=== PATIENT | female | born 1985 | race Caucasian/White ===

== ENCOUNTER 2018-12-27 06:52 | Inpatient (IN) | payer OTHER ==
[2018-12-27] VITALS (42 sets, daily range): BP systolic 76–140; BP diastolic 46–81; PULSE 80–104; RESP 10–29; Ht 170.2 cm; Wt 65.9 kg
[~2018-12-27] VITALS: Ht 170.2 cm; Wt 65.9 kg
[~2018-12-27 06:52] MED LIST: CEFAZOLIN 1 GM/50 ML (PMX) 50 ML IVPB SCH; SOD CHLORIDE 0.9% 1,000 ML IV ONE
--- NOTE | 2018-12-27 07:42 | PREAC ---
Date/Time of Note Date/Time of Note DATE: 12/27/18 TIME: 07:41 Anesthesia Eval and Record Evaluation Time Pre-Procedure Interview DATE: 12/27/18 TIME: 07:41 Age 33 Sex female NPO: 8 hrs Preoperative diagnosis left breast cancer Planned procedure left modified radical mastectomy Past Medical History Past Medical History: Includes Pulm: Smoking Hx (daily smoker ) Recreational drugs: Heroin (IV Heroin, per patient report last use was last night, Dr Madrid is aware. Dr Madrid and patient want to proceed with understanding of increased risks ), Other (U-tox positive for opiates and cocaine. ) Surgery & Anesthesia Issues No known issue (left ACL ) Meds Anticoagulation: No Beta Blanca within 24 hr: No Reason Beta Blanca not given: Pt. not on B-Blanca No Active Prescriptions or Reported Meds Current Medications Cefazolin Sodium 50 ml @ 100 mls/hr PRE-OP IVPB ; Start 12/27/18 at 06:00; Stop 12/27/18 at 15:00 Sodium Chloride 1,000 ml @ 75 mls/hr [id number] ONCE IV ; Start 12/27/18 at 06:00; Stop 12/27/18 at 19:19 Meds reviewed: Yes (none) Allergies Coded Allergies: No Known Allergy (Unverified , 12/27/18) Allergies Reviewed: Yes Labs/Studies Labs Reviewed: Reviewed by anesthesiologist test: Negative Studies: ECG (NSR) Pre-procedure Exam Airway: Adequate mouth opening, Adequate thyromental dist Mallampati: Mallampati II Teeth: Normal Lung: Normal Heart: Normal ASA Physical Status ASA physical status: 2 Emergency: None Planned Anesthetic General/MAC: ETT Planned Pain Management Parenteral pain med, Local by surgeon Pre-operative Attestations Prior to commencing anesthesia and surgery, the patient was re-evaluated, there was verification of: *The patient's identity *The results of appropriate recent lab work and preoperative vital signs *The above evaluation not changing prior to induction *Anesthetic plan, risk benefits, alternative and complications discussed with patient/family; questions answered; patient/family understands, accepts and wishes to proceed. OSCAR GREEN Dec 27, 2018 07:42
[2018-12-27] MEDS ORDERED: MIDAZOLAM 1 MG/ML 2 ML INJ ONE ×2 (07:47→09:55)
[2018-12-27] MEDS ORDERED: LIDOCAINE 2% (SDV) 5 ML INJ ONE (07:47)
[2018-12-27] MEDS ORDERED: ROCURONIUM 50 MG INJ ONE (07:47)
[2018-12-27] MEDS ORDERED: HYDROmorphONE 2 MG/ML SYG ONE (07:47)
[2018-12-27] MEDS ORDERED: PROPOFOL 20 ML ONE (07:47)
[2018-12-27] MEDS ORDERED: CEFAZOLIN 1 GM INJ ONE (07:48)
[2018-12-27] MEDS ORDERED: ONDANSETRON 4 MG INJ ONE (08:35)
[2018-12-27] MEDS ORDERED: DEXAMETHASONE 4 MG/ML 5 ML INJ ONE (08:35)
[2018-12-27] MEDS ORDERED: ONDANSETRON 4 MG INJ IV PRN ×3 (09:00→14:30)
[2018-12-27] MEDS ORDERED: OXYCODONE/ACETAMINOPHEN (5/325) TAB PO PRN ×2 (09:00)
[2018-12-27] MEDS ORDERED: MEPERIDINE 25 MG INJ IV PRN (09:00)
[2018-12-27] MEDS ORDERED: MIDAZOLAM 1 MG/ML 2 ML INJ IV PRN ×2 (09:00→16:30)
[2018-12-27] MEDS ORDERED: morphine (1 MG/ML) 10ML SYRINGE IV PRN ×3 (09:00)
[2018-12-27] MEDS ORDERED: ALBUTEROL 0.083% (NEB) 2.5 MG/3 ML AMP HHN PRN (09:00)
[2018-12-27] MEDS ORDERED: ESMOLOL 10 ML ONE (09:10)
[2018-12-27] MEDS ORDERED: SUGAMMADEX SODIUM 200 MG/2 ML VIAL IV ONE (09:11)
--- NOTE | 2018-12-27 09:38 | SIPON ---
Date/Time of Note Date/Time of Note DATE: 12/27/18 TIME: 09:37 Operative Report Preoperative Diagnosis Locally advanced left breast cancer Postoperative Diagnosis Same Operation/Procedure Performed Left modified radical mastectomy Surgeon see signature line assistant kitchen manager Dr Dominguez Second assist: MAVIS ABARCA MD Anesthesia: general Estimated blood loss: 10 - 50 ml's Transfusion Required none Specimen Left breast and axillary contents Grafts/Implants none Complications none LUISITO EBCKER MD Dec 27, 2018 09:38
[2018-12-27] MEDS ORDERED: DIPHENHYDRAMINE 50 MG INJ IV PRN (10:00)
[2018-12-27] MEDS ORDERED: morphine 2 MG INJ IV PRN ×3 (10:00→10:18)
[2018-12-27] MEDS ORDERED: ACETAMINOPHEN 1000MG/100ML IV 100 ML IVPB PRN (10:00)
[2018-12-27] MEDS: morphine 2 MG INJ IV PRN ×3 (10:22→11:27)
--- NOTE | 2018-12-27 10:32 | OPR ---
DATE OF OPERATION: 12/27/2018 PREOPERATIVE DIAGNOSIS: Locally advanced left breast cancer. POSTOPERATIVE DIAGNOSIS: Locally advanced left breast cancer. OPERATION PERFORMED: Left modified radical mastectomy. ANESTHESIA: General. ANESTHESIOLOGIST: Nurse artificial stone setter, Matti Adams. SURGEON: Andrew Madrid MD CARBON BRUSH MAKER: Dr. Iron Bello and Dr. Chanelle Altamirano INDICATIONS FOR PROCEDURE: The patient is a very unfortunate 33-year-old female who suffers from radha cotic addiction. She noticed a mass in her left breast, but did not immediately seek medical evaluat ion. The mass became quite large and began to involve the skin. She was then seen by Dr. Madrid and consideration was given to possible benefit of neoadjuvant chemotherapy; however, she was HER-2 negat alexa and ER positive and there was also a question as to whether or not she can be compliant due to he r drug addiction. Therefore, decision was made to proceed directly with left modified radical mastec kiesha. DESCRIPTION OF PROCEDURE: The patient was brought to the operating theater, placed under general ane sthesia. The left breast and axillary region was prepped and draped in usual sterile fashion. A wid e elliptical incision was made around the nipple areolar complex including a significant amount of sk in superior to the nipple that appeared to be involved with malignant process. The incision was goyal ied out with 15 blade scalpel. Subcutaneous tissue was dissected with cautery. The skin edges were then elevated with Allis Todd clamps and skin flaps were created using cautery, first superiorly to the clavicle, then medially to sternal border, inferiorly to the inframammary fold and laterally unti l the latissimus dorsi was identified throughout its course. Mastectomy then took place from medial to lateral using cautery. At the border of the pectoralis major muscle, the pectoralis minor muscle was identified. It was incised. The clavipectoral fascia was then incised allowing access into the axilla with blunt dissection along the chest wall. The long thoracic nerve was identified and kept o ut of harm's way. More superiorly, the axillary vein was identified, dissected from medial to latera l. Significant lymphovascular structures were controlled with the LigaSure device and Hemoclips. Th e thoracodorsal neurovascular bundle was identified and kept out of harm's way. Level 1 and level 2 conchita tissues was then meticulously harvested using the LigaSure device. Some of the nodes appeared to be positive for metastatic disease. Final connective tissue attachments to the latissimus dorsi m uscle were then transected with cautery. Specimen was oriented and sent for permanent pathologic santiago lysis. The wound was irrigated. Minimal residual bleeding was controlled with cautery. Two #10 fla t Manuel-Hill drains were then brought through the left mid axillary line, one was cut to size and laid within the axilla, the other was cut to size and laid over the pectoralis major muscle. Both dr charley were secured in place with 2-0 nylon sutures in a standard fashion. The skin was then reapproxi mated with deep dermal layer of 4-0 Vicryl sutures in interrupted fashion, followed by final skin parrish roximation with 5-0 PDS sutures in subcuticular fashion. Benzoin and Steri-Strips were then applied. The patient tolerated procedure well. The estimated blood loss was approximately 40 mL. There wer e no complications. The patient was transported in stable condition to recovery room where a circumf erential compression dressing was applied. Dictated By: ANDREW MADRID MD TL/NTS Conf#: [id number] DID#: [id number] CC: CHANELLE ALTAMIRANO MD; IRON BELLO MD;*EndCC*
--- NOTE | 2018-12-27 10:53 | PAC ---
Date/Time of Note Date/Time of Note DATE: 12/27/18 TIME: 10:52 Post-Anesthesia Notes Post-Anesthesia Note Last documented vital signs Vital Signs Date Temp Pulse Resp B/P (MAP) Pulse Ox O2 O2 Flow FiO2 Time Delivery Rate 12/27/18 97.7 10:15 12/27/18 Simple 8.0 10:03 Mask 12/27/18 91 18 106/58 99 07:54 (74) Activity: WNL Respiratory function: WNL Cardiovascular function: WNL Mental status: Baseline Pain reasonably controlled: Yes Hydration appropriate: Yes Nausea/Vomiting absent: Yes OSCAR GREEN Dec 27, 2018 10:53
[2018-12-27] MEDS ORDERED: morphine 1 MG/ML 30 ML (PCA) IV SCH ×3 (12:00→16:30)
[2018-12-27] MEDS ORDERED: NALOXONE (0.4 MG/ML) INJ IV PRN (12:30)
[2018-12-27] MEDS ORDERED: LORAZEPAM 2 MG INJ IV PRN ×2 (12:30→18:30)
[2018-12-27] MEDS: D5W-0.45 NACL + KCL 20 MEQ 1,000 ML IV SCH ×3 (13:39→23:18)
[2018-12-27] MEDS ORDERED: NACL 0.9% 3 ML SYG IV SCH (14:30)
[2018-12-27] MEDS ORDERED: ENALAPRILAT 1.25 MG INJ IV PRN (14:30)
[2018-12-27] MEDS ORDERED: hydrALAzine 20 MG INJ IV PRN (14:30)
--- NOTE | 2018-12-27 14:34 | HP ---
Date/Time of Note Date/Time of Note DATE: 12/27/18 TIME: 14:34 Assessment/Plan VTE Prophylaxis Pharmacological prophylaxis: other Lines/Catheters IV C[facility] Type [facility] Peripheral IV Assessment/Plan Hospital Course Patient is a female with a past medical history significant for daily heroin use who presents to [facility] for elective left modified radical mastectomy. Patient is now out of surgery in the [facility] floor and intense pain. Patient uses approximately $600-$700 worth of heroin daily and has been for the past 10 years. Patient currently denies any nausea, vomiting, headache, chest pain other than surgical site pain, shortness of breath. Objective Physical exam General: Patient is laying in bed and answers questions appropriately Mentation: Patient is alert and oriented 4, Head: Normocephalic atraumatic Eyes: EOMI, pupils reactive to light Neck: Supple, nontender, midline Respiratory: Clear to auscultation bilaterally Cardiovascular: Tachycardic rate, no obvious murmurs Gastrointestinal: non-tender to palpation, bowel sounds heard. Neurological: Moves all extremities spontaneously Skin: Surgical site bandaged Assessment and plan Breast cancer -Status post elective left modified radical mastectomy -Surgery recommendations appreciated Chronic pain -Patient's $700 a day heroin addict -Pain management on board, currently on morphine drip, will need to adjust as patient's uses excessive amounts of heroin which will need likely a Dilaudid drip plus other management -We will need to be very careful as not to depress patient's respiratory drive -firestop/containment worker and psychiatrist also on board History of schizophrenia -Psychiatry on board Disposition -Follow-up with general surgery recommendations, will need to control patient's pain as much as we can without decreasing respiratory drive. Pain management regulations appreciated Result Diagram: 12/27/18 0739 12/27/18 0739 Results 24hrs Laboratory Tests Test 12/27/18 07:10 12/27/18 07:39 Urine Opiates Screen Positive Urine Barbiturates Negative Urine Amphetamines Screen POSITIVE Urine Benzodiazepines Screen Negative Urine Cocaine Screen Positive Urine Cannabinoids Negative White Blood Count 9.3 Red Blood Count 4.36 Hemoglobin 11.6 L Hematocrit 35.7 L Mean Corpuscular Volume 81.9 L Mean Corpuscular Hemoglobin 26.6 L Mean Corpuscular Hemoglobin Concent 32.5 Red Cell Distribution Width 14.6 H Platelet Count 286 Mean Platelet Volume 10.1 Immature Granulocytes % 0.300 Neutrophils % 70.1 Lymphocytes % 20.9 Monocytes % 4.3 Eosinophils % 4.1 Basophils % 0.3 Nucleated Red Blood Cells % 0.0 Immature Granulocytes # 0.030 Neutrophils # 6.6 Lymphocytes # 2.0 Monocytes # 0.4 Eosinophils # 0.4 Basophils # 0.0 Nucleated Red Blood Cells # 0.0 Prothrombin Time 12.3 Prothrombin Time Ratio 1.0 INR International Normalized Ratio 0.90 Activated Partial Thromboplast Time 30.3 Sodium Level 139 Potassium Level 4.0 Chloride Level 103 Carbon Dioxide Level 30 Anion Gap 6 Blood Urea Nitrogen 18 Creatinine 0.66 Est Glomerular Filtrat Rate mL/min > 60 Glucose Level 88 Calcium Level 9.0 HPI/ROS Admit Date/Time Admit Date/Time Dec 27, 2018 at 06:52 PMH/Family/Social Past Medical History Medications Current Medications Cefazolin Sodium 50 ml @ 100 mls/hr PRE-OP IVPB ; Start 12/27/18 at 06:00; Stop 12/27/18 at 15:00 Diphenhydramine HCl (Benadryl) 25 mg ONCE PRN IV itching; Start 12/27/18 at 10:00; Stop 12/29/18 at 09:59 Ondansetron HCl (Zofran Inj) 4 mg Q6H PRN IV NAUSEA AND/OR VOMITING; Start 12/27/18 at 10:00 Potassium Chloride/Dextrose/ Sod Cl 1,000 ml @ 125 mls/hr Q8H IV Last administered on 12/27/18at 13:39; Admin Dose 125 MLS/HR; Start 12/27/18 at 09:45 Acetaminophen 100 ml @ 400 mls/hr Q6H PRN IVPB PAIN Last administered on 12/27/18at 14:00; Admin Dose 400 MLS/HR; Start 12/27/18 at 10:00; Stop 12/28/18 at 09:59 Naloxone HCl (Narcan) 0.4 mg PRN PRN IV SEDATION; Start 12/27/18 at 12:30 Lorazepam (Ativan) 0.5 mg Q6H PRN IV AGITATION; Start 12/27/18 at 12:30 Morphine Sulfate (morphine) 30 mg Q4PCA IV Last administered on 12/27/18at 12:36; Admin Dose 30 MG; Start 12/27/18 at 12:30 IV Flush (NS 3 ml) 3 ml PER PROTOCOL IV ; Start 12/27/18 at 14:30 Acetaminophen (Tylenol Tab) 650 mg Q6H PRN PO .PAIN 1-3 OR TEMP; Start 12/28/18 at 10:00 Coded Allergies: No Known Allergy (Unverified , 12/27/18) Social History Smoking Status: Current every day smoker Exam/Review of Systems Vital Signs Vitals Vital Signs Date Temp Pulse Resp B/P (MAP) Pulse Ox O2 O2 Flow FiO2 Time Delivery Rate 12/27/18 97.6 100 18 121/57 99 13:45 (78) 12/27/18 Room Air 13:19 12/27/18 2.0 10:[address] Dec 27, 2018 14:34
[2018-12-27] MEDS ORDERED: FENTAnyl (DRIP) 1000 mcg/100mL 100 ML IV SCH (16:30)
--- NOTE | 2018-12-27 16:46 | CONS ---
Assessment/Plan Assessment/Plan Assessment/Plan (Daily) Patient status post elective left modified radical mastectomy Heroin addiction, heavy use complete database although it is known that patient injected with heroin the day prior to hospitalization and in all probability the day of hospitalization. This conference is made secondary to patient having drugs on her person when admitted to medical surgical floor postoperatively Amphetamine use Cocaine use In this patient's condition we will move her to the intensive care unit for close monitoring. We will start her off and fentanyl drip to titrate based upon withdrawal symptoms methadone low-dose for now anticipate requiring very high doses based upon her prehospital use of heroin. Versed as needed severe withdrawal symptoms from amphetamines and/or cocaine as needed. High risk postoperative complications including seizures, agitation, aggressive behavior Hypotension Being resuscitated with fluids at this time Will not reverse high likelihood that patient will seize. Consultation Date/Type/Reason Admit Date/Time Dec 27, 2018 at 06:52 Date/Time of Note DATE: 12/27/18 TIME: 16:45 Hx of Present Illness Patient is altered sedated at this time all information taken from her medical records. She is a 33-year-old female who has history of breast cancer status post left modified radical mastectomy today. I am asked see patient this patient has a history of heroin cocaine and methamphetamine abuse. According to family members and information taken from medical record she has a $700 a day heroin addiction she presented to hospital this morning with a drug screen positive for heroin methamphetamine and cocaine. 3 drugs were found on her person when she arrived to the hospital in her room postoperatively those have been taken away by family members. 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 There is a major concern that patient will withdraw from her heroin addiction as she has been difficult and pulling out her IV lines since she has been on medical surgical floor. Patient's blood pressure systolic has been progressively falling from systolic 142 systolic of 100 sats remain within normal limits. Past Medical History Medical History: other (History of breast cancer) Home Meds No Active Prescriptions or Reported Meds Medications Current Medications Diphenhydramine HCl (Benadryl) 25 mg ONCE PRN IV itching; Start 12/27/18 at 10:00; Stop 12/29/18 at 09:59 Ondansetron HCl (Zofran Inj) 4 mg Q6H PRN IV NAUSEA AND/OR VOMITING; Start 12/27/18 at 10:00 Potassium Chloride/Dextrose/ Sod Cl 1,000 ml @ 125 mls/hr Q8H IV Last administered on 12/27/18at 13:39; Admin Dose 125 MLS/HR; Start 12/27/18 at 09:45 Acetaminophen 100 ml @ 400 mls/hr Q6H PRN IVPB PAIN Last administered on 12/03 02/19at 14:00; Admin Dose 400 MLS/HR; Start 12/27/18 at 10:00; Stop 12/28/18 at 09:59 Naloxone HCl (Narcan) 0.4 mg PRN PRN IV SEDATION; Start 12/27/18 at 12:30 Morphine Sulfate (morphine) 30 mg Q4PCA IV Last administered on 12/27/18at 12:36; Admin Dose 30 MG; Start 12/27/18 at 12:30 IV Flush (NS 3 ml) 3 ml PER PROTOCOL IV ; Start 12/27/18 at 14:30 Acetaminophen (Tylenol Tab) 650 mg Q6H PRN PO .PAIN 1-3 OR TEMP; Start 12/28/18 at 10:00 Hydralazine HCl (Apresoline) 10 mg Q4H PRN IV sbp >160; Start 12/27/18 at 14:30 Gabapentin (Neurontin) 300 mg TID PO ; Start 12/27/18 at 21:00 Enalaprilat (Vasotec Iv) 0.625 mg Q6H PRN IV sbp>160; Start 12/27/18 at 14:30 Clonidine (Catapres) 0.1 mg Q6H PRN PO sbp>160 ; Start 12/27/18 at 14:30 Lorazepam (Ativan) 1 mg Q6H PRN IV AGITATION; Start 12/27/18 at 18:30 Allergies: Coded Allergies: No Known Allergy (Unverified , 12/27/18) Past Surgical History Past Surgical Hx: other (Status post mastectomy) Family History Significant Family History: cancer Social History Smoking Status: Current every day smoker Drug Use: cocaine, heroin, other (Methamphetamine) Exam/Review of Systems Exam Vitals Vital Signs Date Temp Pulse Resp B/P (MAP) Pulse Ox O2 O2 Flow FiO2 Time Delivery Rate 4/26/19 16 14:00 12/27/18 97.6 100 121/57 99 13:45 (78) 12/27/18 Room Air 13:19 12/27/18 2.0 10:27 Constitutional: other (Sedated) Head: normocephalic, atraumatic Eyes: nl conjunctiva, EOMI, nl lids, nl sclera, PERRL Neck: supple, non-tender Respiratory: clear to auscultation, normal air movement Neurological: lethargic Results Result Diagram: 12/27/18 0739 12/27/18 0739 Results 24hrs Laboratory Tests Test 12/27/18 07:10 12/27/18 07:39 Urine Opiates Screen Positive Urine Barbiturates Negative Urine Amphetamines Screen POSITIVE Urine Benzodiazepines Screen Negative Urine Cocaine Screen Positive Urine Cannabinoids Negative White Blood Count 9.3 Red Blood Count 4.36 Hemoglobin 11.6 L Hematocrit 35.7 L Mean Corpuscular Volume 81.9 L Mean Corpuscular Hemoglobin 26.6 L Mean Corpuscular Hemoglobin Concent 32.5 Red Cell Distribution Width 14.6 H Platelet Count 286 Mean Platelet Volume 10.1 Immature Granulocytes % 0.300 Neutrophils % 70.1 Lymphocytes % 20.9 Monocytes % 4.3 Eosinophils % 4.1 Basophils % 0.3 Nucleated Red Blood Cells % 0.0 Immature Granulocytes # 0.030 Neutrophils # 6.6 Lymphocytes # 2.0 Monocytes # 0.4 Eosinophils # 0.4 Basophils # 0.0 Nucleated Red Blood Cells # 0.0 Prothrombin Time 12.3 Prothrombin Time Ratio 1.0 INR International Normalized Ratio 0.90 Activated Partial Thromboplast Time 30.3 Sodium Level 139 Potassium Level 4.0 Chloride Level 103 Carbon Dioxide Level 30 Anion Gap 6 Blood Urea Nitrogen 18 Creatinine 0.66 Est Glomerular Filtrat Rate mL/min > 60 Glucose Level 88 Calcium Level 9.0 Medications Medication Current Medications Diphenhydramine HCl (Benadryl) 25 mg ONCE PRN IV itching; Start 12/27/18 at 10:00; Stop 12/29/18 at 09:59 Ondansetron HCl (Zofran Inj) 4 mg Q6H PRN IV NAUSEA AND/OR VOMITING; Start 12/27/18 at 10:00 Potassium Chloride/Dextrose/ Sod Cl 1,000 ml @ 125 mls/hr Q8H IV Last ad ministered on 12/27/18at 13:39; Admin Dose 125 MLS/HR; Start 12/27/18 at 09:45 Acetaminophen 100 ml @ 400 mls/hr Q6H PRN IVPB PAIN Last administered on 12/27/18at 14:00; Admin Dose 400 MLS/HR; Start 12/27/18 at 10:00; Stop 12/28/18 at 09:59 Naloxone HCl (Narcan) 0.4 mg PRN PRN IV SEDATION; Start 12/27/18 at 12:30 Morphine Sulfate (morphine) 30 mg Q4PCA IV Last administered on 12/27/18at 12:36; Admin Dose 30 MG; Start 12/27/18 at 12:30 IV Flush (NS 3 ml) 3 ml PER PROTOCOL IV ; Start 12/27/18 at 14:30 Acetaminophen (Tylenol Tab) 650 mg Q6H PRN PO .PAIN 1-3 OR TEMP; Start 12/28/18 at 10:00 Hydralazine HCl (Apresoline) 10 mg Q4H PRN IV sbp >160; Start 12/27/18 at 14:30 Gabapentin (Neurontin) 300 mg TID PO ; Start 12/27/18 at 21:00 Enalaprilat (Vasotec Iv) 0.625 mg Q6H PRN IV sbp>160; Start 12/27/18 at 14:30 Clonidine (Catapres) 0.1 mg Q6H PRN PO sbp>160 ; Start 12/27/18 at 14:30 Lorazepam (Ativan) 1 mg Q6H PRN IV AGITATION; Start 12/27/18 at 18:30 ABBY PHILIPPE Dec 27, 2018 16:46
[2018-12-27] MEDS: METHADONE (1 MG/ML 5 ML PO UD SYG) PO SCH ×2 (18:06→21:55)
[2018-12-27] MEDS ORDERED: GABAPENTIN 300 MG CAP PO SCH (21:00)
[2018-12-28] VITALS (23 sets, daily range): BP systolic 93–120; BP diastolic 48–77; PULSE 84–105; RESP 7–28
[2018-12-28] MEDS: METHADONE (1 MG/ML 5 ML PO UD SYG) PO SCH ×5 (02:01→20:05)
[2018-12-28] MEDS: NICOTINE (21 MG/24 HR) PATCH TRANSDERM SCH (08:13)
[2018-12-28] MEDS: D5W-0.45 NACL + KCL 20 MEQ 1,000 ML IV SCH ×2 (08:13→17:01)
--- NOTE | 2018-12-28 09:18 | PN ---
Date/Time of Note Date/Time of Note DATE: 12/28/18 TIME: 09:16 Objective Vitals Vital Signs Date Temp Pulse Resp B/P (MAP) Pulse Ox O2 O2 Flow FiO2 Time Delivery Rate 12/28/18 98.6 85 18 111/73 97 Room Air 08:00 (86) 12/27/18 2.0 10:27 Intake and Output 12/27/18 12/27/18 12/28/18 1515:00 23:00 07:00 IntakeIntake Total 1700 ml 1355 ml 922.0 ml OutputOutput Total 80 ml 40 ml 100 ml BalanceBalance 1620 ml 1315 ml 822.0 ml Results Result Diagram: 12/27/18 0739 12/27/18 0739 Medications Medications Current Medications Diphenhydramine HCl (Benadryl) 25 mg ONCE PRN IV itching; Start 12/27/18 at 10:00; Stop 12/29/18 at 09:59 Ondansetron HCl (Zofran Inj) 4 mg Q6H PRN IV NAUSEA AND/OR VOMITING; Start 12/27/18 at 10:00 Potassium Chloride/Dextrose/ Sod Cl 1,000 ml @ 125 mls/hr Q8H IV Last administered on 12/28/18at 08:13; Admin Dose 125 MLS/HR; Start 12/27/18 at 09:45 IV Flush (NS 3 ml) 3 ml PER PROTOCOL IV ; Start 12/27/18 at 14:30 Acetaminophen (Tylenol Tab) 650 mg Q6H PRN PO .PAIN 1-3 OR TEMP; Start 12/28/18 at 10:00 Hydralazine HCl (Apresoline) 10 mg Q4H PRN IV sbp >160; Start 12/27/18 at 14:30 Enalaprilat (Vasotec Iv) 0.625 mg Q6H PRN IV sbp>160; Start 12/27/18 at 14:30 Clonidine (Catapres) 0.1 mg Q6H PRN PO sbp>160 ; Start 12/27/18 at 14:30 Fentanyl 100 ml @ 2.5 mls/hr TITRATE IV Last administered on 12/27/18at 18:16; Admin Dose 2.5 MLS/HR; Start 12/27/18 at 16:30 Midazolam HCl (Versed) 1 mg Q4H PRN IV SEDATION; Start 12/27/18 at 16:30 Methadone HCl (Methadone Liq) 2 mg Q4 PO Last administered on 12/28/18at 08:13; Admin Dose 2 MG; Start 12/27/18 at 17:00 Nicotine (Nicoderm 21 Mg/ 24hr) 1 patch DAILY TRANSDERM Last administered on 12/28/18at 08:13; Admin Dose 1 PATCH; Start 12/28/18 at 09:00 VTE Prophylaxis Risk score (from Ns)>0 risk: 6 SCD applied (from [facility]): No SCD contraindication: other Lines/Catheters IV Catheter Type: Good in Place: No Assessment/Plan Hospital Course Subjective Patient is a very angry if woken up, no acute issues overnight, patient sleeping Objective Physical exam General: Patient is laying in bed and answers questions unwillingly almost due to anger Mentation: Patient is alert and oriented 4, Head: Normocephalic atraumatic Eyes: EOMI, pupils reactive to light Neck: Supple, nontender, midline Respiratory: Clear to auscultation bilaterally Cardiovascular: Regular rate, no obvious murmurs Gastrointestinal: non-tender to palpation, bowel sounds heard. Neurological: Moves all extremities spontaneously Skin: Surgical site bandaged Assessment and plan Breast cancer -Status post elective left modified radical mastectomy -Surgery recommendations appreciated Chronic pain -Patient's $700 a day heroin addict -Pain management physician on board, patient was in ICU with fentanyl drip overnight, no acute events, fentanyl drip now be stopped and methadone started per pain management doctor. -Continue gabapentin -We will need to be very careful as not to depress patient's respiratory drive -fruit farmworker and psychiatrist also on board History of schizophrenia -Psychiatry on board Disposition -Follow-up with general surgery recommendations, will need to control patient's pain as much as we can without decreasing respiratory drive. Pain management regulations appreciated -More than 40 minutes of critical care time was spent on this encounter KRAIG L[address] Dec 28, 2018 09:18
--- NOTE | 2018-12-28 09:21 | CONS ---
Assessment/Plan Assessment/Plan Assessment/Plan (Daily) Status post mastectomy Heroin addiction Cocaine addiction Methamphetamine addiction This morning she is in a irritable mood in the intensive care unit but there were no major medical problems overnight. She requires a sitter as she was pulling out her IV lines yesterday afternoon. Today we will switch over the methadone 10 mg 3 times a day however she will probably require higher doses, start off and IV Dilaudid for postop pain management and Ativan. Okay to move out of ICU from pain management standpoint. Consultation Date/Type/Reason Admit Date/Time Dec 27, 2018 at 06:52 Initial Consult Date Date/Time of Note DATE: 12/28/18 TIME: 09:18 Exam/Review of Systems Exam Vitals Vital Signs Date Temp Pulse Resp B/P (MAP) Pulse Ox O2 O2 Flow FiO2 Time Delivery Rate 12/28/18 98.6 85 18 111/73 97 Room Air 08:00 (86) 12/27/18 2.0 10:27 Intake and Output 12/27/18 12/27/18 12/28/18 1515:00 23:00 07:00 IntakeIntake Total 1700 ml 1355 ml 922.0 ml OutputOutput Total 80 ml 40 ml 100 ml BalanceBalance 1620 ml 1315 ml 822.0 ml Psych: other (Irritable) Head: normocephalic, atraumatic Respiratory: clear to auscultation, normal air movement; No congested cough, No crackles/rales, No diminished breath sounds, No intercostal retraction, No labored breathing, No respirations, No tactile fremitus, No wheezing, No other Cardiovascular: regular rate and rhythm, nl pulses; No bruits, No diastolic murmur, No edema, No gallop, No irregular rhythm, No jugular venous distention (JVD), No murmurs/extra sounds, No rub, No systolic murmur, No S3, No S4, No other Neurological: INSIDE FINISHER II-XII intact, nl mental status, nl speech, nl strength Results Result Diagram: 12/27/18 0739 12/27/18 0739 Medications Medication Current Medications Diphenhydramine HCl (Benadryl) 25 mg ONCE PRN IV itching; Start 12/27/18 at 10:00; Stop 12/29/18 at 09:59 Ondansetron HCl (Zofran Inj) 4 mg Q6H PRN IV NAUSEA AND/OR VOMITING; Start 12/27/18 at 10:00 Potassium Chloride/Dextrose/ Sod Cl 1,000 ml @ 125 mls/hr Q8H IV Last administered on 12/28/18at 08:13; Admin Dose 125 MLS/HR; Start 12/27/18 at 09:45 IV Flush (NS 3 ml) 3 ml PER PROTOCOL IV ; Start 12/27/18 at 14:30 Acetaminophen (Tylenol Tab) 650 mg Q6H PRN PO .PAIN 1-3 OR TEMP; Start 12/28/18 at 10:00 Hydralazine HCl (Apresoline) 10 mg Q4H PRN IV sbp >160; Start 12/27/18 at 14:30 Enalaprilat (Vasotec Iv) 0.625 mg Q6H PRN IV sbp>160; Start 12/27/18 at 14:30 Clonidine (Catapres) 0.1 mg Q6H PRN PO sbp>160 ; Start 12/27/18 at 14:30 Fentanyl 100 ml @ 2.5 mls/hr TITRATE IV Last administered on 12/27/18at 18:16; Admin Dose 2.5 MLS/HR; Start 12/27/18 at 16:30 Midazolam HCl (Versed) 1 mg Q4H PRN IV SEDATION; Start 12/27/18 at 16:30 Methadone HCl (Methadone Liq) 2 mg Q4 PO Last administered on 12/28/18at 08:13; Admin Dose 2 MG; Start 12/27/18 at 17:00 Nicotine (Nicoderm 21 Mg/ 24hr) 1 patch DAILY TRANSDERM Last administered on 12/28/18at 08:13; Admin Dose 1 PATCH; Start 12/28/18 at 09:00 ABBY PHILIPPE Dec 28, 2018 09:20
[2018-12-28] MEDS ORDERED: ACETAMINOPHEN 325 MG TAB PO PRN (10:00)
[2018-12-28] MEDS: HYDROmorphONE 2 MG/ML SYG IV PRN ×4 (10:21→21:59)
--- NOTE | 2018-12-28 11:14 | PSY ---
Date/Time of Note Date/Time of Note DATE: 12/28/18 TIME: 11:14 Psychiatric Subjective Eval Consent Pt consented to telemedicine: No Subjective Evaluation Patient location: inpatient History of present illness Patient is a 33-year-old female who is currently in ICU after a Mastectomy. The [id number] evaluation, patient is alert and oriented able to verbalize her needs. Patient states she does not have psychiatric issue, but was seen by a psychiatrist when she was in senior living as part of the requirement for the senior living system. She denies feeling hopeless, she denies suicidal ideation, she denies hearing voices, she denies homicidal ideation and contracted for safety. Patient has fair coping skills states the only problem she has is drug addicti on. Patient has reportedly been using about $700 warts of methamphetamine on a daily basis, and her last use was 2 days ago. Patient currently has sitter ordered, need to keep a close eye on on her. Past psychiatric history Denies Hospitalization: other Family History Denies Allergies: Coded Allergies: No Known Allergy (Unverified , 12/27/18) Substance Abuse Substance abuse history: Yes Prior substance abuse treatmen: Yes Social History Marital status: other DPA/Conservatorship: No Psychiatric Objective Eval Review of Systems: Review of Systems: Not Applicable Physical Examination: Sleep: Adequate Appetite: Adequate Energy: Adequate Mental Status Examination: Appearance: Groomed Eye Contact: Fair Psychomotor Activity: Slow Behavior: Cooperative Speech: Clear, Soft AFFECT: Constricted Mood: Anxious Thought Content: Normal Suicidal: No Orientation: x4 Cognition: Alert Insight: Severe Judgement: Severe Attention Span: Distractible Laboratory Results Laboratory Tests Test 12/27/18 07:10 12/27/18 07:39 Urine Opiates Screen Positive Urine Barbiturates Negative Urine Amphetamines Screen POSITIVE Urine Benzodiazepines Screen Negative Urine Cocaine Screen Positive Urine Cannabinoids Negative White Blood Count 9.3 10^3/ul Red Blood Count 4.36 10^6/ul Hemoglobin 11.6 g/dl Hematocrit 35.7 % Mean Corpuscular Volume 81.9 fl Mean Corpuscular Hemoglobin 26.6 pg Mean Corpuscular Hemoglobin Concent 32.5 g/dl Red Cell Distribution Width 14.6 % Platelet Count 286 10^3/UL Mean Platelet Volume 10.1 fl Immature Granulocytes % 0.300 % Neutrophils % 70.1 % Lymphocytes % 20.9 % Monocytes % 4.3 % Eosinophils % 4.1 % Basophils % 0.3 % Nucleated Red Blood Cells % 0.0 /100WBC Immature Granulocytes # 0.030 10^3/ul Neutrophils # 6.6 10^3/ul Lymphocytes # 2.0 10^3/ul Monocytes # 0.4 10^3/ul Eosinophils # 0.4 10^3/ul Basophils # 0.0 10^3/ul Nucleated Red Blood Cells # 0.0 10^3/ul Prothrombin Time 12.3 Sec Prothrombin Time Ratio 1.0 INR International Normalized Ratio 0.90 Activated Partial Thromboplast Time 30.3 Sec Sodium Level 139 mmol/L Potassium Level 4.0 mmol/L Chloride Level 103 mmol/L Carbon Dioxide Level 30 mmol/L Anion Gap 6 Blood Urea Nitrogen 18 mg/dl Creatinine 0.66 mg/dl Est Glomerular Filtrat Rate mL/min > 60 mL/min Glucose Level 88 mg/dl Calcium Level 9.0 mg/dl Assessment and Plan Assessment/Diagnosis Diagnosis Rule out substance-induced drug psychosis Recommendation/Plan Medication Management No medication required Multiple antipsychotics: No Discharge Disposition: Other Legal Status: Voluntary (Does not meet criteria for 5150 hold) SANDRITA BRYSON NP Dec 28, 2018 11:14
[2018-12-28] MEDS: LORAZEPAM 2 MG INJ IV PRN ×2 (12:30→20:05)
--- NOTE | 2018-12-28 21:06 | PN ---
DATE: 12/28/2018 Postop day #1 status post left breast modified radical mastectomy with axillary dissection. SUBJECTIVE: No specific complaints. Apparently, patient has been admitted post-operation in ICU for control of the possible withdrawal from narcotics that she is addicted to. She has been on fentanyl drip and later on today has been changed to Dilaudid IV 2 mg q.3 hours p.r.n. and also methadone p.o . t.i.d. OBJECTIVE: GENERAL: The patient was asleep, but easily woke up and is not agitated at this time. VITAL SIGNS: Temperature maximum 98.6, heart rate fluctuating between 85 and 105. Right now it is 8 7, respiration 16, blood pressure 101/55, saturation 98% room air. HEART: Clinically, heart regular. LUNGS: Clear. Dressing around the chest wall or left breast area is intact. Round dressing, namely Bias dressing is intact. It is not too tight. There are 2 Manuel-Hill drains which are draining serosanguineous fluid. The amount of drainage, one of them has been 140 mL from time of operation ye to 7 o'clock today morning and the other one has been 60 mL, total 200 mL, serosanguineous fl uid. The patient can move left upper extremity and right upper extremity full range. LABORATORY DATA: There are no labs done today. ASSESSMENT AND PLAN: A 33-year-old female status post left modified radical mastectomy. The patient from surgical point of view is stable. The patient from surgical point of view can be discharged, b ut of course patient has other medical issues including concern for withdrawal symptoms because she i s addicted to heroin and therefore the pain management is observing the patient in ICU. Therefore, w ill leave it to the medical service and pain management to discharge the patient whenever they feel i t is safe and comfortable for her. Otherwise, from surgery point of view she can be discharged anyti me. The patient was instructed how to take care of Manuel-Hill and also patient was told to call Georges Becker' office on Sunday if she goes home on Sunday and make an appointment for followup. Dictated By: NICOLE BELLO MD PS/NTS Conf#: [id number] DID#: [id number] CC: LUISITO BECKER MD;*End*
[2018-12-29 02:12] VITALS: BP 99/55; PULSE 91; RESP 19
[2018-12-29] MEDS: D5W-0.45 NACL + KCL 20 MEQ 1,000 ML IV SCH (02:21)
[2018-12-29] MEDS: HYDROmorphONE 2 MG/ML SYG IV PRN ×2 (02:26→08:10)
[2018-12-29] MEDS ORDERED: MAGNESIUM HYDROXIDE 30ML CUP PO PRN (03:00)
[2018-12-29 03:50] VITALS: BP 107/63; PULSE 84
[2018-12-29] MEDS: LORAZEPAM 2 MG INJ IV PRN ×3 (03:51→18:19)
[2018-12-29 08:00] VITALS: BP 106/60; PULSE 99; RESP 16
[2018-12-29] MEDS: METHADONE (1 MG/ML 5 ML PO UD SYG) PO SCH ×3 (08:08→21:33)
[2018-12-29] MEDS: SENNA TAB PO SCH ×2 (08:09→21:33)
[2018-12-29] MEDS: NICOTINE (21 MG/24 HR) PATCH TRANSDERM SCH (08:09)
[2018-12-29 08:15] VITALS: BP 106/59; PULSE 99; RESP 18
[2018-12-29] MEDS: HYDROmorphONE 1 MG/ML SYG IV PRN ×3 (11:23→20:29)
--- NOTE | 2018-12-29 12:41 | PN ---
Date/Time of Note Date/Time of Note DATE: 12/29/18 TIME: 12:38 Objective Vitals Vital Signs Date Temp Pulse Resp B/P (MAP) Pulse Ox O2 O2 Flow FiO2 Time Delivery Rate 12/29/18 99 18 106/59 97 Room Air 08:15 (75) 12/29/18 97.5 08:00 12/27/18 2.0 10:27 Intake and Output 12/28/18 12/28/18 12/29/18 1515:00 23:00 07:00 IntakeIntake Total 1495 ml 1245 ml 840 ml OutputOutput Total 60 ml 50 ml 40 ml BalanceBalance 1435 ml 1195 ml 800 ml Results Result Diagram: 12/29/18 0444 12/27/18 0739 Medications Medications Current Medications Ondansetron HCl (Zofran Inj) 4 mg Q6H PRN IV NAUSEA AND/OR VOMITING Last administered on 12/28/18at 18:30; Admin Dose 4 MG; Start 12/27/18 at 10:00 IV Flush (NS 3 ml) 3 ml PER PROTOCOL IV ; Start 12/27/18 at 14:30 Acetaminophen (Tylenol Tab) 650 mg Q6H PRN PO .PAIN 1-3 OR TEMP; Start 12/28/18 at 10:00 Hydralazine HCl (Apresoline) 10 mg Q4H PRN IV sbp >160; Start 12/27/18 at 14:30 Enalaprilat (Vasotec Iv) 0.625 mg Q6H PRN IV sbp>160; Start 12/27/18 at 14:30 Clonidine (Catapres) 0.1 mg Q6H PRN PO sbp>160 ; Start 12/27/18 at 14:30 Nicotine (Nicoderm 21 Mg/ 24hr) 1 patch DAILY TRANSDERM Last administered on 12/29/18at 08:09; Admin Dose 1 PATCH; Start 12/28/18 at 09:00 Methadone HCl (Methadone Liq) 10 mg TID PO Last administered on 12/29/18at 08:08; Admin Dose 10 MG; Start 12/28/18 at 13:00 Lorazepam (Ativan) 1 mg Q4H PRN IV AGITATION Last administered on 12/29/18at 03:51; Admin Dose 1 MG; Start 4/27/19 at 09:30 Senna (Senokot) 2 tab BID PO Last administered on 12/29/18at 08:09; Admin Dose 2 TAB; Start 12/29/18 at 09:00 Magnesium Hydroxide (Milk Of Mag) 30 ml Q12 PRN PO CONSTIPATION; Start 12/29/18 at 03:00 Hydromorphone HCl (Dilaudid) 1 mg Q3H PRN IV SEVERE PAIN LEVEL 7-10 Last administered on 12/29/18at 11:23; Admin Dose 1 MG; Start 12/29/18 at 11:16 VTE Prophylaxis Risk score (from [facility])>0 risk: 8 SCD applied (from [facility]): No SCD contraindication: other Lines/Catheters IV Catheter Type: Good in Place: No Assessment/Plan Hospital Course Subjective Patient still pretty sleepy Objective Physical exam General: Patient is laying in bed and answers questions unwillingly almost due to anger Mentation: Patient is alert and oriented 4, Head: Normocephalic atraumatic Eyes: EOMI, pupils reactive to light Neck: Supple, nontender, midline Respiratory: Clear to auscultation bilaterally Cardiovascular: Regular rate, no obvious murmurs Gastrointestinal: non-tender to palpation, bowel sounds heard. Neurological: Moves all extremities spontaneously Skin: Surgical site bandaged Assessment and plan Breast cancer -Status post elective left modified radical mastectomy -Surgery recommendations appreciated, okay to DC from surgery perspective, will get home health wound care for patient's 2 drains, patient knows to follow-up with surgeon Chronic pain -Patient supposedly has a $700 a day heroin addict -Pain management physician on board, patient was in ICU with fentanyl drip initially, no acute events, fentanyl drip now be stopped and methadone started per pain management doctor. We will also tone down IV Dilaudid as 2 mg seems to be putting her to sleep. 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 Pain management regulations appreciated -Case management notified to arrange home health wound care for drains, patient states that she has a methadone clinic she goes to but will need to be discharged before 10 AM as she needs to follow-up between the hours of 10 and noon. Once home health wound care is arranged and patient stable okay to FOSTER early in the a.KRAIG Guillen Dec 29, 2018 12:41
[2018-12-29 13:33] VITALS: BP 102/60; PULSE 101; RESP 16
--- NOTE | 2018-12-29 16:24 | PN ---
DATE: 12/29/2018 DATE OF SERVICE: 12/29/2018 The patient is status post left modified radical mastectomy with axillary dissection. SUBJECTIVE: No complaint. OBJECTIVE: GENERAL: Awake, alert, oriented, no acute distress. VITAL SIGNS: Temperature maximum today 98.4, heart rate 91 and regular, respirations 18, blood pressure 106/60, saturation 97% room air. HEART: Regular. LUNGS: Clear. ABDOMEN: Soft. Chest wall dressing is intact. There are 2 Manuel-Hill drains. The drainage is serosanguineous, more serous fluid. The amount of drainage in the past 24 hours from the #1 Manuel-Hill has drained 40 mL, #2 has drained 110 mL of serosanguineous fluid. LABORATORY DATA: WBC 8200 with 54% segmented neutrophils, hemoglobin 11, hematocrit 34. Chemistry: We do not have anything from today. The patient has been transferred from ICU to the E floor. From a surgical point of view as was mentioned, the patient can be discharged home today, but considering the addiction problem and management of that, the patient is on the management and control with internal medicine and pain management colleagues. They are planning for arrangements to adjust her methadone. At this time she is getting methadone 10 mg p.o. three times a day and Dilaudid IV for pain control and for withdrawal control. Therefore, the medical service, Dr. John, and Dr. Sanches, can decide to discharge the patient. The patient was given instructions to follow with Dr. Madrid for surgical problem and also to record the drainage of the Manuel-Hill every night in the chart and when she goes to see Dr. Madrid to take the chart with her. Dictated By: NICOLE ARRINGTON/RENETTA Conf#: [id number] DID#: [id number] ADALGISA
[2018-12-29 20:10] VITALS: BP 108/59; PULSE 110; RESP 18
[2018-12-30 02:20] VITALS: BP 101/67; PULSE 91; RESP 18
[2018-12-30] MEDS: HYDROmorphONE 1 MG/ML SYG IV PRN ×3 (04:32→10:37)
[2018-12-30 07:22] VITALS: BP 100/56; PULSE 68; RESP 17
[2018-12-30] MEDS: METHADONE (1 MG/ML 5 ML PO UD SYG) PO SCH ×2 (08:53→13:00)
[2018-12-30] MEDS: NICOTINE (21 MG/24 HR) PATCH TRANSDERM SCH (08:54)
[2018-12-30] MEDS: SENNA TAB PO SCH (08:54)
[2018-12-30] MEDS: LORAZEPAM 2 MG INJ IV PRN (11:41)
[2018-12-30 11:43] VITALS: BP 97/54
--- NOTE | 2018-12-30 11:52 | PN ---
Date/Time of Note Date/Time of Note DATE: 12/30/18 TIME: 11:44 Assessment/Plan VTE Prophylaxis Risk score (from [facility])>0 risk: 4 SCD applied (from [facility]): Yes Pharmacological prophylaxis: NA/contraindicated Pharm contraindication: low risk/ambulating Lines/Catheters IV Catheter Type (from Nrsg): Saline Lock Urinary Cath still in place: No Assessment/Plan Assessment/Plan 1. Breast cancer s/p elective L modified radial mastectomy - General surgery on board and cleared for discharge. Will need HH arranged for drain care and instructed to record output in drain daily. Follow up as outpatient 2. Chronic pain - Pain management on board and appreciate recommendations. Will need to continue on Methadone as outpatient and already established care with a clinic 3. History of schizophrenia - Psychiatry on board and appreciate recommendations 4. Disposition - Will touch base with CM regarding HH for drain care - Patient to follow up with Methadone clinic for medication refills Result Diagram: 12/30/187 12/30/18446 Results 24hrs Laboratory Tests Test 12/30/18 04:47 White Blood Count 9.2 Red Blood Count 4.71 Hemoglobin 12.5 Hematocrit 38.6 Mean Corpuscular Volume 82.0 Mean Corpuscular Hemoglobin 26.5 L Mean Corpuscular Hemoglobin Concent 32.4 Red Cell Distribution Width 14.4 Platelet Count 343 # Mean Platelet Volume 10.5 H Immature Granulocytes % 0.500 H Neutrophils % 44.9 Lymphocytes % 41.7 Monocytes % 7.6 Eosinophils % 4.9 Basophils % 0.4 Nucleated Red Blood Cells % 0.0 Immature Granulocytes # 0.050 H Neutrophils # 4.1 Lymphocytes # 3.8 H Monocytes # 0.7 Eosinophils # 0.5 Basophils # 0.0 Nucleated Red Blood Cells # 0.0 Sodium Level 139 Potassium Level 3.9 Chloride Level 102 Carbon Dioxide Level 28 Anion Gap 9 Blood Urea Nitrogen 15 Creatinine 0.60 Est Glomerular Filtrat Rate mL/min > 60 Glucose Level 102 Calcium Level 9.4 Phosphorus Level 4.7 Magnesium Level 2.0 Subjective 24 Hr Interval Summary Free Text/Dictation Patient denies any acute issues. Asking if she can ambulate outside since would like to walk farther than the unit. No acute overnight events. Discussed continuing methadone and she was inquiring if she needs it. Exam/Review of Systems Exam Vitals Vital Signs Date Temp Pulse Resp B/P (MAP) Pulse Ox O2 O2 Flow FiO2 Time Delivery Rate 12/30/18 97/54 (68) 11:43 12/30/18 98.0 68 17 92 07:22 12/29/18 Room Air 08:15 12/27/18 2.0 10:27 Intake and Output 12/29/18 12/29/18 12/30/18 1515:00 23:00 07:00 IntakeIntake Total 1260 ml 360 ml OutputOutput Total 70 ml 35 ml 43 ml BalanceBalance 1190 ml 325 ml -43 ml Exam General: no acute distress. irritable Neck: Supple, nontender, midline Respiratory: Clear to auscultation bilaterally. no wheezing or rhonchi Cardiovascular: Regular rate and rhythm, no obvious murmurs Gastrointestinal: soft, non-tender to palpation, nondistended, bowel sounds heard. Neurological: Moves all extremities spontaneously Skin: Surgical site bandaged with drains in place Results Results 24hrs Laboratory Tests Test 12/30/18 04:47 White Blood Count 9.2 Red Blood Count 4.71 Hemoglobin 12.5 Hematocrit 38.6 Mean Corpuscular Volume 82.0 Mean Corpuscular Hemoglobin 26.5 L Mean Corpuscular Hemoglobin Concent 32.4 Red Cell Distribution Width 14.4 Platelet Count 343 # Mean Platelet Volume 10.5 H Immature Granulocytes % 0.500 H Neutrophils % 44.9 Lymphocytes % 41.7 Monocytes % 7.6 Eosinophils % 4.9 Basophils % 0.4 Nucleated Red Blood Cells % 0.0 Immature Granulocytes # 0.050 H Neutrophils # 4.1 Lymphocytes # 3.8 H Monocytes # 0.7 Eosinophils # 0.5 Basophils # 0.0 Nucleated Red Blood Cells # 0.0 Sodium Level 139 Potassium Level 3.9 Chloride Level 102 Carbon Dioxide Level 28 Anion Gap 9 Blood Urea Nitrogen 15 Creatinine 0.60 Est Glomerular Filtrat Rate mL/min > 60 Glucose Level 102 Calcium Level 9.4 Phosphorus Level 4.7 Magnesium Level 2.0 Medications Medication Current Medications Ondansetron HCl (Zofran Inj) 4 mg Q6H PRN IV NAUSEA AND/OR VOMITING Last administered on 12/28/18at 18:30; Admin Dose 4 MG; Start 12/27/18 at 10:00 IV Flush (NS 3 ml) 3 ml PER PROTOCOL IV ; Start 12/27/18 at 14:30 Acetaminophen (Tylenol Tab) 650 mg Q6H PRN PO .PAIN 1-3 OR TEMP; Start 12/28/18 at 10:00 Hydralazine HCl (Apresoline) 10 mg Q4H PRN IV sbp >160; Start 12/27/18 at 14:30 Enalaprilat (Vasotec Iv) 0.625 mg Q6H PRN IV sbp>160; Start 12/27/18 at 14:30 Clonidine (Catapres) 0.1 mg Q6H PRN PO sbp>160 ; Start 12/27/18 at 14:30 Nicotine (Nicoderm 21 Mg/ 24hr) 1 patch DAILY TRANSDERM Last administered on 12/29/18 08:09; Admin Dose 1 PATCH; Start 12/28/18 at 09:00 Methadone HCl (Methadone Liq) 10 mg TID PO Last administered on 12/30/18 08:53; Admin Dose 10 MG; Start 12/28/18 at 13:00 Lorazepam (Ativan) 1 mg Q4H PRN IV AGITATION Last administered on 12/30/18 11:41; Admin Dose 1 MG; Start 12/28/18 at 09:30 Senna (Senokot) 2 tab BID PO Last administered on 12/29/18 21:33; Admin Dose 2 TAB; Start 12/29/18 at 09:00 Magnesium Hydroxide (Milk Of Mag) 30 ml Q12 PRN PO CONSTIPATION; Start 12/29/18 at 03:00 Hydromorphone HCl (Dilaudid) 1 mg Q3H PRN IV SEVERE PAIN LEVEL 7-10 Last administered on 12/30/18 10:37; Admin Dose 1 MG; Start 12/29/18 at 11:16 CAMPBELL CEJA MD Dec 30, 2018 11:52
[2018-12-30 13:22] VITALS: BP 96/58; PULSE 65; RESP 19
--- NOTE | 2018-12-30 14:00 | PDOCDIS ---
Discharge Instructions DIAGNOSIS Discharge Diagnosis 1. Breast cancer s/p elective L modified radial mastectomy 2. Tobacco use 3. h/o substance use CONDITION [id number] Patient Condition: [id number] Stable HOME CARE INSTRUCTIONS: [id number] Diet Instructions: [id number] Regular FOLLOW UP/APPOINTMENTS Follow-up Plan 1. Follow up with your primary care physician in 1 week 2[address] Madrid office to schedule a follow up appointment. Keep dressings clean and dry until you see him 3. You will need to continue drain care and document how much output you have daily 4. Continue with Methadone clinic in order to assist with pain control 5. If experiencing any concerning symptoms, please go to your nearest emergency department REFERRALS Other Referrals Andrew Madrid MD Specialty: General Surgery Office Address [address] [place] [address] Office CAMPBELL CEJA MD Dec 30, 2018 14:00
--- NOTE | 2018-12-30 18:08 | DS ---
Date/Time of Note Date/Time of Note DATE: 12/30/18 TIME: 18:03 Discharge Summary Admission/Discharge Info Admit Date/Time Dec 27, 2018 at 06:52 Discharge Date/Time Dec 30, 2018 at 15:00 Discharge Diagnosis 1. Breast cancer s/p elective L modified radial mastectomy 2. Tobacco use 3. h/o substance use Patient Condition: Stable Consults General Surgery Procedures Date/Time of Note Date/Time of Note DATE: 12/27/18 TIME: 09:37 Operative Report Preoperative Diagnosis Locally advanced left breast cancer Postoperative Diagnosis Same Operation/Procedure Performed Left modified radical mastectomy Hx of Present Illness Patient is a female with a past medical history significant for daily heroin use who presents to [facility] for elective left modified radical mastectomy. Patient is now out of surgery in the [facility] floor and intense pain. Patient uses approximately $600-$700 worth of heroin daily and has been for the past 10 years. Patient currently denies any nausea, vomiting, headache, chest pain other than surgical site pain, shortness of breath. Hospital Course Patient was admitted for postoperative care following mastectomy. Patient had history of heavy heroin abuse and was transferred to ICU for close monitoring while on Dilaudid for respiratory distress and monitoring for withdrawal symptoms. Patient was seen by Pain management and continued on Methadone. She was also evaluated by psychiatry and symptoms were determine to most likely be from heroin abuse. Patient was cleared for discharge by Surgery with recommendations to follow up as outpatient. Her mother planned to take her out of [facility] and home health was not able to be arranged. She was instructed on how to care for drains at home and encouraged to follow up with Methadone clinic for continuation of medications. Patient remained medically stable and was discharged home in stable condition. Home Meds No Active Prescriptions or Reported Meds Follow-up Plan 1. Follow up with your primary care physician in 1 week 2. Please call [address]. [place] office to schedule a follow up appointment. Keep dressings clean and dry until you see him 3. You will need to continue drain care and document how much output you have daily 4. Continue with Methadone clinic in order to assist with pain control 5. If experiencing any concerning symptoms, please go to your nearest emergency department Primary Care Provider Not On Staff Doctor Time spent on discharge: > 30 minutes Pending Labs Laboratory Tests Test 12/30/18 04:47 White Blood Count 9.2 10^3/ul (4.8-10.8) Red Blood Count 4.71 10^6/ul (4.20-5.40) Hemoglobin 12.5 g/dl (12.0-16.0) Hematocrit 38.6 % (37.0-47.0) Mean Corpuscular Volume 82.0 fl (82.0-101.0) Mean Corpuscular Hemoglobin 26.5 pg (29.0-33.0) Mean Corpuscular Hemoglobin Concent 32.4 g/dl (32.0-37.0) Red Cell Distribution Width 14.4 % (11.5-14.5) Platelet Count 343 10^3/UL (140-415) Mean Platelet Volume 10.5 fl (7.4-10.4) Immature Granulocytes % 0.500 % (0.001-0.429) Neutrophils % 44.9 % (39.0-77.0) Lymphocytes % 41.7 % (15.0-51.0) Monocytes % 7.6 % (0.0-11.0) Eosinophils % 4.9 % (0.0-7.0) Basophils % 0.4 % (0.0-2.0) Nucleated Red Blood Cells % 0.0 /100WBC (0.0-0.0) Immature Granulocytes # 0.050 10^3/ul (0.0-0.031) Neutrophils # 4.1 10^3/ul (1.6-7.5) Lymphocytes # 3.8 10^3/ul (0.8-2.9) Monocytes # 0.7 10^3/ul (0.3-0.9) Eosinophils # 0.5 10^3/ul (0.0-0.5) Basophils # 0.0 10^3/ul (0.0-0.1) Nucleated Red Blood Cells # 0.0 10^3/ul (0.0-0.0) Sodium Level 139 mmol/L (135-144) Potassium Level 3.9 mmol/L (3.5-5.1) Chloride Level 102 mmol/L (97-110) Carbon Dioxide Level 28 mmol/L (21-31) Anion Gap 9 (5-13) Blood Urea Nitrogen 15 mg/dl (7-20) Creatinine 0.60 mg/dl (0.44-1.00) Est Glomerular Filtrat Rate mL/min > 60 mL/min (>60) Glucose Level 102 mg/dl (70-220) Calcium Level 9.4 mg/dl (8.4-10.2) Phosphorus Level 4.7 mg/dl (2.5-4.9) Magnesium Level 2.0 mg/dl (1.7-2.5) CAMPBELL CEJA MD Dec 30, 2018 18:08
== END 2018-12-30 15:00 | disposition home or self-care (01) | DRG 580 ==
LOC: REC 06:52 → MS1 11:26 → REC 12:16 → MS1 13:16 → ICU 17:23 → 2NE 12-28 21:29
PROVIDERS: ADMIT Surgery Surgical Oncology; ATTEND Internal Medicine
PROC: 07B60ZX Excision of Left Axillary Lymphatic, Open Approach, Diagnostic (ICD-10-PCS; 2018-12-27)
PROC: 0HTU0ZZ Resection of Left Breast, Open Approach (ICD-10-PCS; principal; 2018-12-27 08:00)
DX: C50.912 Malignant neoplasm of unspecified site of left female breast (principal); F11.20 Opioid dependence, uncomplicated; C77.3 Secondary and unspecified malignant neoplasm of axilla and upper limb lymph nodes; F14.20 Cocaine dependence, uncomplicated; F15.20 Other stimulant dependence, uncomplicated; Z17.0 Estrogen receptor positive status [ER+]; I95.81 Postprocedural hypotension; F17.200 Nicotine dependence, unspecified, uncomplicated; G89.29 Other chronic pain
CPT/HCPCS: 80048; 80307; 83735; 84100; 85025; 85610; 85730; 88307; 93005; J0131; J0690; J1100; J1170; J2060; J2175; J2250; J2270; J2405; J3010; J3480; J7030

== ENCOUNTER 2019-04-28 09:37 | Day surgery (SDC) | payer OTHER ==
[~2019-04-28] VITALS: Ht 170.2 cm; Wt 64.0 kg
[2019-04-28] VITALS (8 sets, daily range): BP systolic 87–107; BP diastolic 54–77; PULSE 70–84; RESP 10–21; Ht 170.2 cm; Wt 64.0 kg
[~2019-04-28 09:37] MED LIST changes: -CEFAZOLIN 1 GM/50 ML (PMX) 50 ML IVPB SCH; +RIBO1TAB4 PO; -SOD CHLORIDE 0.9% 1,000 ML IV ONE
[2019-04-28] MEDS ORDERED: SOD CHLORIDE 0.9% 1,000 ML IV SCH (11:07)
[2019-04-28] MEDS ORDERED: FENTAnyl 50 MCG/ML VIAL ONE (12:23)
[2019-04-28] MEDS ORDERED: LIDOCAINE 1% (MDV) 20 ML INJ ONE (12:23)
[2019-04-28] MEDS ORDERED: MIDAZOLAM 1 MG/ML 2 ML INJ ONE (12:23)
[2019-04-28] MEDS ORDERED: HYDROmorphONE 0.5 MG/0.5 ML SYG IV STA (13:47)
[2019-04-28] MEDS ORDERED: HYDROmorphONE 0.5 MG/0.5 ML SYG ONE (13:51)
== END 2019-04-28 15:50 | disposition home or self-care (01) ==
LOC: SDS 09:37
PROVIDERS: ATTEND Internal Medicine
DX: R16.0 Hepatomegaly, not elsewhere classified (principal); Z85.3 Personal history of malignant neoplasm of breast
CPT/HCPCS: 47000; 76942; 77012; J1170; J2250; J3010; Z7610